=== PATIENT | male | born 1970 | race Caucasian/White ===

== ENCOUNTER 2022-02-24 15:30 | Emergency (ER) | payer SELFPAY ==
[~2022-02-24 15:30] MED LIST: CYCL10 PO; ESOM20; HYDACE10B PO; HYDACE5 PO; IBUP600 PO; IBUP800 PO; META800 PO; NAPR500 PO; OXYACE5T PO; RANI150; RXOXYACE PO
== END 2022-02-24 16:47 | disposition home or self-care (01) ==
LOC: ER 15:30
DX: F10.129 Alcohol abuse with intoxication, unspecified (principal); Z53.21 Procedure and treatment not carried out due to patient leaving prior to being seen by health care provider
CPT/HCPCS: 99283